=== PATIENT | female | born 1985 | race Two or more races ===

== ENCOUNTER 2016-08-25 10:26 | Day surgery (SDC) | payer OTHER ==
--- NOTE | 2016-08-18 12:00 | HISTORY AND PHYSICAL E ---
History and Physical NAME: TY STRANGE : 1985 AGE: 31Y ADMITTED: 08/25/2016 ROOM: HISTORY OF PRESENT ILLNESS: The patient is 31, abdominal pain epigastric, constipation, diarrhea. The patient presented at this time regarding upper endoscopy. PAST SURGICAL HISTORY: Negative. MEDICATIONS: 1. Protonix. 2. Carafate. 3. Zantac. 4. Inhaler. 5. Zofran. SOCIAL HISTORY: . Does not smoke. Social alcohol. FAMILY HISTORY: Father is alive, well. Mom is alive, well. REVIEWING OF SYSTEMS: RESPIRATORY: Asthma, inhaler. CARDIAC: Negative. ENDOCRINE: Negative. GASTROINTESTINAL: Epigastric abdominal pain, diarrhea, irritable bowel syndrome. ONCOLOGY/HEMATOLOGY: Anemia. NEUROPSYCHIATRIC: Anxiety. PHYSICAL EXAMINATION: VITAL SIGNS: Age 31. Blood pressure is 100/70. Pulse 80. Respirations 20. Temperature is 98. HEAD, EYES, EARS, NOSE, THROAT: Normal. NECK: Supple. CARDIOVASCULAR: Normal. LUNGS: Clear. ABDOMEN: Soft. NEUROLOGIC: Negative. CONCLUSION: Abdominal pain. PLAN: Upper endoscopy, duodenal biopsy and gastric biopsy, rule out celiac disease, rule out H pylori. DICTATING PHYSICIAN: KAREN WHITMORE M.D. 1284M 1631 Y#: [id number] ID: [id number] JOB#: [id number] ACCT: [id number] cc:[facility], KAREN Meeks >
--- NOTE | 2016-08-19 15:33 | HISTORY AND PHYSICAL E ---
History and Physical NAME: TY STRANGE : 1985 AGE: 31Y ADMITTED: 08/25/2016 ROOM: REASON FOR ADMISSION: The patient was admitted for upper scope. HISTORY: This 31-year-old female presented with abdominal pain and change in bowel habits. The patient presented for upper scope. SOCIAL HISTORY: . She does not smoke. Drinks socially. PAST SURGICAL HISTORY: Negative. REVIEW OF SYSTEMS: RESPIRATORY: Asthma. CARDIAC: Negative. ENDOCRINE: Negative. GASTROINTESTINAL: Epigastric abdominal pain, diarrhea, IBS. ONCOLOGY/HEMATOLOGY: Anemia. NEUROPSYCHIATRIC: . FAMILY HISTORY: Father is alive. Mom is alive. PHYSICAL EXAMINATION: GENERAL: A 31-year-old young female. VITAL SIGNS: Blood pressure 100/70, pulse 80, respirations 20, temp 98. HEENT: Normal. NECK: Supple. CARDIOVASCULAR: Normal. LUNGS: Clear. ABDOMEN: Soft. NEUROLOGIC: Exam is negative. MEDICATIONS: 1. Protonix. 2. Zantac. 3. Sucralfate. 4. Zofran. 5. She uses inhaler for asthma. CONCLUSIONS: Abdominal pain. PLAN: Upper scope. DICTATING PHYSICIAN: KAREN WHITMORE M.D. 1209M 1309 PHY#: [id number] ID: [id number] JOB#: [id number] ACCT: [id number] cc:[facility] KAREN AVILES M.D. >
[~2016-08-25 10:26] MED LIST: EPINEPHRINE INJ 1 MG/10 ML DISP.SYRIN ONE; FLUMAZENIL INJ 0.5 MG/5 ML VIAL IV ONE; GLYCOPYRROLATE INJ 0.4 MG/2 ML VIAL ONE; NALOXONE HCL INJ/PF 0.4 MG/1 ML SDV ONE; ONDANSETRON HCL INJ/PF 4 MG/2 ML SDV ONE
[2016-08-25] MEDS: MIDAZOLAM 2 MG/2 ML INJ ONE ×3 (11:06→11:14)
[2016-08-25] MEDS: FENTANYL CITRATE INJ/PF 100 MCG/2 ML AMPUL ONE ×2 (11:08→11:16)
[2016-08-25 12:28] VITALS: BP 97/60
[2016-08-25 12:34] LABS: ABSOLUTE EOSINOPHILS # (AUTO) 0.2 10^3/uL (0.0-0.6); ABSOLUTE LYMPHOCYTES (AUTO) 2.4 10^3/uL (0.5-4.7); ABSOLUTE MONOCYTES (AUTO) 0.6 10^3/uL (0.1-1.4); ABSOLUTE NEUT (AUTO) 8.3 10^3/uL (1.7-8.2); BASOPHILS % (AUTO) 0.4 % (0-2); EOSINOPHILS % (AUTO) 1.9 % (0-6); HEMATOCRIT 40.7 % (36.0-47.0); HEMOGLOBIN 13.3 g/dL (12.0-15.5); HGB HCT DIFFERENCE -0.8; LYMPHOCYTES % (AUTO) 20.8 % (13-45); MEAN CORPUSCULAR HEMOGLOBIN 30.4 pg (27.0-33.4); MEAN CORPUSCULAR HGB CONC 32.7 g/dL (32.0-36.0); MEAN CORPUSCULAR VOLUME 93 fl (80-97); MONOCYTES % (AUTO) 5.5 % (3-13); RED BLOOD COUNT 4.39 10^6/uL (3.72-5.28); RED CELL DISTRIBUTION WIDTH 12.7 % (11.5-14.0); SEGMENTED NEUTROPHILS % (AUTO) 71.4 % (42-78); WHITE BLOOD COUNT 11.7 10^3/uL (4.0-10.5)
[2016-08-25 12:52] LABS: ALANINE AMINOTRANSFERASE 17 U/L (9-52); ALBUMIN 3.7 g/dL (3.5-5.0); ALKALINE PHOSPHATASE 67 U/L (38-126); AMYLASE 58 U/L (30-110); ANION GAP 8 (5-19); ASPARTATE AMINO TRANSFERASE 16 U/L (14-36); BILIRUBIN,DIRECT 0.3 mg/dL (0.0-0.4); BILIRUBIN,TOTAL 0.7 mg/dL (0.2-1.3); BLOOD UREA NITROGEN 12 mg/dL (7-20); CALCIUM 8.4 mg/dL (8.4-10.2); CARBON DIOXIDE 26 mmol/L (22-30); CHLORIDE 101 mmol/L (98-107); CREATININE RESULT 0.57 mg/dL (0.52-1.25); GLUCOSE 150 mg/dL (75-110); SODIUM 135.1 mmol/L (137-145); TOTAL PROTEIN 6.5 g/dL (6.3-8.2)
[2016-08-25 13:10] LABS: ERYTHROCYTE SEDIMENTATION RATE 8 mm/hr (0-20)
--- NOTE | 2016-08-26 10:29 | OPERATIVE REPORT E ---
Operative Report NAME: TY STRANGE : 1985 AGE: 31Y DATE OF SURGERY: ROOM: PREOPERATIVE DIAGNOSES: The patient is a 31-year-old female: 1. Abdominal pain. 2. Diarrhea. 3. Reflux. POSTOPERATIVE DIAGNOSES: 1. Esophagitis, mild. 2. Gastritis, mild. 3. Duodenitis, mild. OPERATION: 1. Esophagoscopy. 2. Gastroscopy. 3. Duodenoscopy. SURGEON: KAREN WHITMORE M.D. ANESTHESIA: Versed 6, fentanyl 100. TISSUE REMOVED OR ALTERED: 1. Gastric biopsy for H. pylori. 2. Duodenal biopsy for celiac disease. PROCEDURE: Baby scope passed under guided vision with no difficulties. ESOPHAGOSCOPY: Junction at 35 cm, no hernias, no stricture, mild esophagitis. GASTROSCOPY: Mild gastritis, biopsy obtained for H. pylori. DUODENOSCOPY: Mild duodenitis, biopsy obtained for celiac disease workup. No ulcers, mild duodenitis. CONCLUSION: 1. Esophagitis. 2. Gastritis. 3. Duodenitis. PLAN: 1. Awaiting biopsy. 2. Hold aspirin and nonsteroidals. 3. Patient to see us in the office in the next 3 days. DICTATING PHYSICIAN: KAREN WHITMORE M.D. 5011M 1125 [facility]#: [id number] ID: [id number] JOB#: [id number] ACCT: [id number] cc:[facility], KAREN WHITMORE M.D. >
--- NOTE | 2016-08-26 10:33 | DISCHARGE SUMMARY E ---
Discharge Summary NAME: TY STRANGE : 1985 AGE: 31Y ADMITTED: 08/25/2016 DISCHARGED: 08/25/2016 PROCEDURE: EGD and biopsy. HISTORY OF PRESENT ILLNESS: The patient is 31. She presented to us with abdominal pain, diarrhea. MEDICATIONS: 1. Zofran. 2. Sucralfate. 3. Zantac. 4. Protonix. 5. She takes inhalers for asthma. Major complaint is abdominal pain, diarrhea. Question IBS. Upper scope shows no ulcers. She did have mild esophagitis, mild gastritis, mild duodenitis. DISCHARGE PLAN: Hole aspirin and nonsteroidal. Soft diet. Lab studies. Patient to see us in the office in the next few days. FINAL DIAGNOSES: 1. Abdominal pain, etiology undetermined. No evidence of ulcers. 2. Mild gastritis. 3. Mild duodenitis. PLAN: Awaiting biopsy. Lab studies. Followup office visit in the next few days. DICTATING PHYSICIAN: KAREN WHITMORE M.D. 1211M 1138 Y#: [id number] ID: [id number] JOB#: [id number] ACCT: [id number] cc:[facility], KAREN WHITMORE M.D. >
== END 2016-08-25 12:30 | disposition home or self-care (01) ==
LOC: END 10:26
PROVIDERS: ATTEND Specialist
PROC: 0DB98ZX Excision of Duodenum, Via Natural or Artificial Opening Endoscopic, Diagnostic (ICD-10-PCS; 2016-08-25)
PROC: 0DB68ZX Excision of Stomach, Via Natural or Artificial Opening Endoscopic, Diagnostic (ICD-10-PCS; principal; 2016-08-25 11:00)
DX: K20.9 Esophagitis, unspecified (principal); K29.50 Unspecified chronic gastritis without bleeding; K29.80 Duodenitis without bleeding; J45.909 Unspecified asthma, uncomplicated; D64.9 Anemia, unspecified; F41.9 Anxiety disorder, unspecified; Z79.51 Long term (current) use of inhaled steroids; Z79.899 Other long term (current) drug therapy
CPT/HCPCS: 43239; 36415; 82150; 83690; 85025; 85652; 80053; 88342 ×2; 88305 ×2; J2250; J3010; J2405; J0171; J2310; J3490